=== PATIENT | male | born 1960 | race Caucasian/White ===

== ENCOUNTER 2017-03-29 15:50 | Emergency (ER) | payer SELFPAY ==
[2017-03-29 16:24] VITALS: BP 151/74
[2017-03-29] MEDS ORDERED: Tetan/Diph/Pertus SYR(Tdap)* 0.5 ML SYR(BOOSTRIX) use SYR IM ONE (17:24)
--- NOTE | 2017-03-29 18:38 | UC ---
Belinda Medina Alfonso, scribed for Tanvir King MD on 03/29/17 at 1723 . Laceration HPI - HPI Summary HPI Summary: This patient is a 56 year old M presenting to [facility] with a chief complaint of a right index finger and right middle finger lacerations which occurred at work at 1500 today. The patient rates the throbbing pain 3/10 in severity. Symptoms aggravated and alleviated by nothing. - History Of Current Complaint Chief Complaint: UCLaceration Stated Complaint: FINGER LACERATION Time Seen by Provider: 03/29/17 17:12 Hx Obtained From: Patient Laceration Location: Hand - R Mechanism Of Injury: Sharp Trauma Onset/Duration: Sudden Onset, Lasting Minutes, Still Present Severity: Mild Pain Intensity: 3 Pain Scale Used: 0-10 Numeric Aggravating Factors: Nothing - Allergies/Home Medications Allergies/Adverse Reactions: Allergies Allergy/AdvReac Type Severity Reaction Status Date / Time No Known Allergies Allergy Verified 03/29/17 16:24 Home Medications: Home Medications NK [No Home Medications Reported] 03/29/17 [History Confirmed 03/29/17] PMH/Surg Hx/FS Hx/Imm Hx - Additional Past Medical History Additional PMH: Shoulder surgery Previously Healthy: No - Surgical History Surgery Procedure, Year, and Place: shoulder surgery years ago (32 years ago) - Family History Known Family History: Positive: Diabetes - Social History Alcohol Use: None Substance Use Type: None Smoking Status (MU): Never Smoked Tobacco Review of Systems Constitutional: Other - Negative fever. Skin: Other - right index finger and right middle finger lacerations All Other Systems Reviewed And Are Negative: Yes Physical Exam Triage Information Reviewed: Yes Vital Signs: Initial Vital Signs Temp 98.8 F 03/29/17 16:16 Pulse 72 03/29/17 16:16 Resp 16 03/29/17 16:16 BP 151/74 03/29/17 16:16 Pulse Ox 96 03/29/17 16:16 Vital Signs Reviewed: Yes - Additional Comments VITAL SIGNS: Reviewed. GENERAL: Patient is a well-developed and nourished male who is lying comfortable in the stretcher. Patient is not in any acute respiratory distress. HEAD AND FACE: Normocephalic EYES: PERRLA, EOMI x 2. EARS: Hearing grossly intact. MOUTH: Oropharynx within normal limits. NECK: Supple, trachea is midline, no adenopathy, no JVD, no carotid bruit. CHEST: Symmetric, no tenderness at palpation LUNGS: Clear to auscultation bilaterally. No wheezing or crackles. CVS: Regular rate and rhythm, S1 and S2 present, no murmurs or gallops appreciated. ABDOMEN: Soft, non-tender. Bowel sounds are normal. No abdominal abnormal pulsations. EXTREMITIES: Full ROM in all major joints, no edema, no cyanosis or clubbing. NEURO: Alert and oriented x 3. No acute neurological deficits. Speech is normal and follows commands. SKIN: Dry and warm Right middle finger superficial laceration 0.8 cm. Right index finger superficial abrasion. Laceration Repair - Laceration Repair 1 Description: Linear Laceration Size After Repair: Length (cm) - .8 Modified For Repair: No Cleansing Completed Via Routine Prep: Yes Irrigation With Pressure Irrigation Device: Yes Closure Material: SteriStrips Closure Method: Single Layer Laceration Course/Dx - Course/Dx Course Of Treatment: This patient is a 56 year old M presenting to [facility] with a chief complaint of a right index finger and right middle finger lacerations which occurred at work at 1500 today. The patient rates the throbbing pain 3/10 in severity. Symptoms aggravated and alleviated by nothing. Laceration repaired as described in the procedure note. Patient will be discharged with follow up from PCP. The patient is agreeable with this plan. The patient is hemodynamically stable, alert and oriented x3. - Differential Dx - Laceration/Wound Differental Diagnoses: Avulsion, Fracture, Laceration Provider Diagnoses: Right middle finger laceration. Elevated blood pressure without diagnosis of HTN. Discharge - Discharge Plan Condition: Stable Disposition: HOME Patient Education Materials: Laceration (ED), Steristrips (ED) Referrals: [facility] [place] PHYSICIAN REFERRAL [Outside] - 3 Days Additional Instructions: RETURN TO THE EMERGENCY DEPARTMENT OR CONVIENT CARE FOR CHANGING OR WORSENING SYMPTOMS. FOLLOW UP WITH YOUR PRIMARY CARE PROVIDER WITHIN ONE WEEK FOR HIGH BLOOD PRESSURE NOTED TODAY. The documentation as recorded by the Belinda rodriguez Alfonso accurately reflects the service I personally performed and the decisions made by , Tanvir King MD.
== END 2017-03-29 17:41 | disposition home or self-care (01) ==
LOC: UCEAST 15:50
DX: S61.212A Laceration without foreign body of right middle finger without damage to nail, initial encounter (principal); S61.210A Laceration without foreign body of right index finger without damage to nail, initial encounter; W26.9XXA Contact with unspecified sharp object(s), initial encounter; Y93.9 Activity, unspecified; Y92.9 Unspecified place or not applicable; Y99.0 Civilian activity done for income or pay
CPT/HCPCS: 90715; 99203; G0463